=== PATIENT | female | born 1995 | race African-American/Black ===

== ENCOUNTER 2020-12-27 10:47 | Emergency (ER) | payer OTHER, SELFPAY ==
[2020-12-27 11:06] VITALS: BP 138/101; PULSE 76; RESP 16; TEMP 36.9; O2SAT 100
[2020-12-27 12:27] LABS: Add Urine Microscopic? YES; Appearance Urine Clear (Clear); Bacteria Urine Trace /hpf; Bilirubin Urine Negative (Negative); Blood Urine Negative (Negative); Color Urine Yellow (Yellow); Glucose Urine UA Negative (Negative); Ketones Urine Negative (Negative); Leukocyte Esterase Ur Negative LEU/UL (Negative); Mucus Urine Rare /lpf; Nitrate Urine Negative (Negative); Protein Urine Negative (Negative); Specific Grav Ur 1.026 (1.001-1.035); Squamous Epithelial Cell Urine Occasional /hpf (Few); Urobilinogen Urine Negative mg/dL (<2.0); WBC Urine 0-3 /hpf
--- NOTE | 2020-12-27 14:12 | ED.GENADULT ---
HPI - General Adult General Chief complaint: Urogenital-Female Stated complaint: vaginal discomfort Time Seen by Provider: 12/27/20 11:25 Source: patient and RN notes reviewed Mode of arrival: ambulatory Limitations: no limitations History of Present Illness HPI narrative: Patient is a 25-year-old female who presents to emergency department for evaluation of concern for vaginal irritation and itching notes she was treated for trichomoniasis and bacterial vaginosis and has since the treatment been having irritation and itching with concern for yeast infection has follow-up with her kindergartner denies any fever vomiting or other complaint and presents in no distress Related Data Allergies Allergy/AdvReac Type Severity Reaction Status Date / Time No Known Allergies Allergy Verified 12/27/20 11:54 Review of Systems Review of Systems: All systems reviewed & are unremarkable except as noted in HPI and below PMFSH Past Medical History Medical History Healthy female Surgical History Surgical History No history of previous surgery Social History Social History Smoking status: Smoker, status unknown Gender identity (if verbalized by the patient): Female Exam Narrative: Exam Narrative: GENERAL: Well-appearing, well-nourished, and in no acute distress. HEAD: Normocephalic, atraumatic. EYES: PERRLA and EOMI. ENT: Nares clear, no rhinorrhea or epistaxis. Mucous membranes moist. CHEST: Clear to auscultation. No respiratory distress. No wheezes rales or rhonchi HEART: Regular rate and rhythm. No murmur heard. Normal peripheral pulses. ABDOMEN: Soft, nontender, nondistended FEMALE GENITOURINARY: Patient with small amount of white discharge in the vaginal vault otherwise normal exam EXTREMITIES: Normal range of motion. No edema. SKIN: Warm, dry, no rash. NEURO: No focal deficits. Alert and oriented x3. PSYCH: Normal mood and affect. Course Course Emergency Course: Patient in the room in no distress aware of case findings treatment plan and diagnosis agreeing to follow-up as instructed or to return if symptoms worsen or concerns Vital Signs Vital signs: Vital Signs Temperature 98.5 F 12/27/20 11:06 Pulse Rate 76 07/08/21 11:06 Respiratory Rate 16 12/27/20 11:06 Blood Pressure 138/101 H 12/27/20 11:06 Pulse Oximetry 100 12/27/20 11:06 Temperature 98.5 F 12/27/20 11:06 Pulse Rate 76 12/27/20 11:06 Respiratory Rate 16 12/27/20 11:06 Blood Pressure 138/101 H 12/27/20 11:06 Pulse Oximetry 100 12/27/20 11:06 Medical Decision Making MDM Narrative Medical decision making narrative: ABCs and vital signs intact and stable patient was evaluated had pelvic cultures obtained will be following with gynecology for further evaluation is felt appropriate for outpatient reevaluation Vital Signs Vital Signs: Vital Signs Temperature 98.5 F 12/27/20 11:06 Pulse Rate 76 12/27/20 11:06 Respiratory Rate 16 12/27/20 11:06 Blood Pressure 138/101 H 12/27/20 11:06 Pulse Oximetry 100 12/27/20 11:06 Temperature 98.5 F 12/27/20 11:06 Pulse Rate 76 12/27/20 11:06 Respiratory Rate 16 12/27/20 11:06 Blood Pressure 138/101 H 12/27/20 11:06 Pulse Oximetry 100 12/27/20 11:06 Lab Data Labs: Lab Results 12/27/20 12/27/20 12/27/20 Range/Units 12:10 13:18 13:18 Urine Color Yellow (Yellow) Urine Appearance Clear (Clear) Urine pH 7.0 (5.0-9.0) Ur Specific [place] 1.026 (1.001-1.035) Urine Protein Negative (Negative) mg/dL Urine Glucose (UA) Negative (Negative) mg/dL Urine Ketones Negative (Negative) mg/dL Ur Blood (Man) Negative (Negative) Urine Nitrate Negative (Negative) Urine Bilirubin Negative (Negative) Urine Urobilinogen Negative (<2.0) m
[2020-12-27 14:25] VITALS: BP 134/71; PULSE 58; RESP 16; TEMP 36.3; O2SAT 100
== END 2020-12-27 14:26 | disposition home or self-care (01) ==
PROVIDERS: Emergency Medicine Emergency Medical Services; Emergency Provider Emergency Medicine
DX: N76.0 Acute vaginitis (principal)
CPT/HCPCS: 81001; 81025; 87070; 87491; 87591; 87808; 99284

== ENCOUNTER 2021-02-03 04:55 | Emergency (ER) | payer OTHER, SELFPAY ==
[2021-02-03 05:02] VITALS: BP 137/84; PULSE 76; RESP 16; TEMP 37; O2SAT 98
--- NOTE | 2021-02-03 05:03 | ED.GENADULT ---
HPI - General Adult General Chief complaint: Nausea/Vomiting/Diarrhea Stated complaint: N/V after ETOH Time Seen by Provider: 02/03/21 04:58 History of Present Illness HPI narrative: Patient with 5-year-old female presents the emergency department with chief complaint of nausea and vomiting. Patient reports tonight she had a couple margaritas and that was followed by several shots of [place] the patient states that she started having multiple episodes of nausea and vomiting and has been unable to keep anything down since then. The patient reports her abdomen feels uneasy but denies any localizing pain. Patient denies fever denies chills denies diarrhea. Related Data Allergies Allergy/AdvReac Type Severity Reaction Status Date / Time No Known Allergies Allergy Verified 02/03/21 05:11 Review of Systems Review of Systems: A 10 system review of systems was completed on the patient and is negative except for what is stated in the HPI. Nursing and ancillary documentation was reviewed. PMFSH Past Medical History Medical History Healthy female Surgical History Surgical History No history of previous surgery Social History Social History Smoking status: Smoker, status unknown Gender identity (if verbalized by the patient): Female Exam Narrative: GENERAL: Well-appearing, well-nourished, and in no acute distress. HEAD: Normocephalic, atraumatic. EYES: PERRLA and EOMI. ENT: Nares clear, no rhinorrhea or epistaxis. Mucous membranes moist. NECK: Supple. CHEST: Clear to auscultation. No respiratory distress. HEART: Regular rate and rhythm. No murmur heard. Normal peripheral pulses. ABDOMEN: Soft, nontender, nondistended, normal active bowel sounds. EXTREMITIES: Normal range of motion. No edema. SKIN: Warm, dry, no rash. NEURO: No focal deficits. Alert and oriented x3. PSYCH: Normal mood and affect. Course Vital Signs Vital signs: Vital Signs Temperature 37.0 C 02/03/21 05:02 Pulse Rate 76 02/03/21 05:02 Respiratory Rate 16 02/03/21 05:02 Blood Pressure 137/84 02/03/21 05:02 Pulse Oximetry 98 02/03/21 05:02 Temperature 37.0 C 02/03/21 05:02 Pulse Rate 76 02/03/21 05:02 Respiratory Rate 16 02/03/21 05:02 Blood Pressure 137/84 02/03/21 05:02 Pulse Oximetry 98 02/03/21 05:02 Medical Decision Making Vital Signs Vital Signs: Vital Signs Temperature 37.0 C 02/03/21 05:02 Pulse Rate 76 02/03/21 05:02 Respiratory Rate 16 02/03/21 05:02 Blood Pressure 137/84 02/03/21 05:02 Pulse Oximetry 98 02/03/21 05:02 Temperature 37.0 C 02/03/21 05:02 Pulse Rate 76 02/03/21 05:02 Respiratory Rate 16 02/03/21 05:02 Blood Pressure 137/84 02/03/21 05:02 Pulse Oximetry 98 02/03/21 05:02 Lab Data Result diagrams: 02/03/21 05:25 02/03/21 05:25 Labs: Lab Results 02/03/21 02/03/21 02/03/21 Range/Units 05:25 05:25 05:25 WBC 10.1 H (4.5-10.0) K/mm3 RBC 4.22 (4.2-5.4) M/mm3 Hgb 11.4 L (12.0-15.0) g/dL Hct 34.4 L (37.0-47.0) % MCV 81.5 (80-100) fl MCH 27.0 (26-34) pg MCHC 33.1 (32-36) g/dl RDW 14.6 H (11.5-14.5) % Plt Count 387 H (150-375) k/mm3 MPV 9.4 (7.4-10.4) fl Immature Gran % (Auto) 0.4 (0-0.5) % Neut % (Auto) 74.9 H (45.5-73.1) % Lymph % (Auto) 18.6 (18.3-44.2) % [place] % (Auto) 5.6 (2.6-8.5) % Eos % (Auto) 0.3 (0-4.4) % Baso % (Auto) 0.2 (0.2-1.2) % Lymph # (Auto) 1.88 (0.9-3.2) K/mm3 [place] # (Auto) 0.6 (0.1-0.6) K/mm3 Eos # (Auto) 0.0 (0-0.3) K/mm3 Baso # (Auto) 0.0 (0.0-0.1) K/mm3 Abs Immat Gran (auto) 0.04 H (0.00-0.031) K/mm3 Absolute Neuts (auto) 7.6 H (1.3-6.7) K/mm3 Absolute Nucleated RBC 0.0 (0.0-0.012) K/m
[2021-02-03] MEDS: ONDANSETRON INJ 4 MG/2 ML VIAL IV PUSH (05:17)
[2021-02-03] MEDS: SODIUM CHLORIDE 0.9% IV 1,000 ML 999 ML IV CONT (05:17)
[2021-02-03 05:35] LABS: Basophils Percent Auto 0.2 % (0.2-1.2); Eosinophils Percent Auto 0.3 % (0-4.4); Hematocrit 34.4 % (37.0-47.0); Hemoglobin 11.4 g/dL (12.0-15.0); Immature Granulocyte Absolute 0.04 K/mm3 (0.00-0.031); Immature Granulocyte Percent A 0.4 % (0-0.5); Lymphocytes Absolute Auto 1.88 K/mm3 (0.9-3.2); Lymphocytes Percent Auto 18.6 % (18.3-44.2); Mean Corpuscular HGB Conc 33.1 g/dl (32-36); Mean Corpuscular Volume 81.5 fl (80-100); Mean Platelet Volume 9.4 fl (7.4-10.4); Monocytes Absolute Auto 0.6 K/mm3 (0.1-0.6); Monocytes Percent Auto 5.6 % (2.6-8.5); Neutrophils Absolute Auto 7.6 K/mm3 (1.3-6.7); Neutrophils Percent Auto 74.9 % (45.5-73.1); Platelet Count Result 387 k/mm3 (150-375); Red Blood Count 4.22 M/mm3 (4.2-5.4); Red Cell Distribution Width 14.6 % (11.5-14.5); White Blood Count 10.1 K/mm3 (4.5-10.0)
[2021-02-03 05:40] LABS: Add Urine Microscopic? YES; Appearance Urine Clear (Clear); Bilirubin Urine Negative (Negative); Blood Urine 1+ (Negative); Color Urine Yellow (Yellow); Glucose Urine UA Negative (Negative); Ketones Urine Negative (Negative); Leukocyte Esterase Ur Negative LEU/UL (Negative); Nitrate Urine Negative (Negative); Protein Urine 1+ mg/dL (Negative); Squamous Epithelial Cell Urine Rare /hpf (Few); Urobilinogen Urine Negative mg/dL (<2.0); WBC Urine 0-3 /hpf
[2021-02-03 05:50] LABS: Alanine Aminotransferase 14 U/L (4-35); Albumin Level 4.3 g/dL (3.5-5.1); Alkaline Phosphatase 80 U/L (38-126); Anion Gap 9 mmol/L (8-16); Aspartate Amino Transferase 28 U/L (14-36); Bilirubin,Total 0.2 mg/dL (0.2-1.3); Blood Urea Nitrogen 6 mg/dL (7-17); Carbon Dioxide 27 mmol/L (22-30); Chloride 101 mmol/L (98-107); Estimated Glomerular Filt Rate > 60; Glucose 103 mg/dL (65-110); Lipase 44 U/L (23-300); Potassium 3.6 mmol/L (3.4-5.0); Sodium 137 mmol/L (137-145)
[2021-02-03 05:51] LABS: Ethanol < 10 mg/dL (<10)
[2021-02-03 06:53] VITALS: BP 112/65; PULSE 62; RESP 16; O2SAT 100
[2021-02-03 07:14] VITALS: BP 101/74; PULSE 60; RESP 17; O2SAT 99
== END 2021-02-03 07:20 | disposition home or self-care (01) ==
PROVIDERS: Emergency Provider Emergency Medicine
DX: R11.2 Nausea with vomiting, unspecified (principal)
CPT/HCPCS: 36415; 80053; 80307; 81001; 81025; 83690; 85025; 96361; 96374; 99284; J2405; J7030

== ENCOUNTER 2021-09-10 14:08 | Emergency (ER) | payer OTHER, SELFPAY ==
[2021-09-10 14:10] VITALS: BP 141/87; PULSE 75; RESP 14; TEMP 36.4; O2SAT 99
--- NOTE | 2021-09-10 14:37 | ED.NAVMDI ---
HPI - Nausea/Vomiting/Diarrhea General Chief complaint: Nausea/Vomiting/Diarrhea Stated complaint: Nausea vomiting Time Seen by Provider: 09/10/21 14:34 Source: patient Mode of arrival: ambulatory History of Present Illness HPI Narrative: 26 y/o female presents to the ER today for nausea and vomiting since around 1am. She drank a lot of alcohol yesterday evening. She says that she has had persistant vomiting all day and cannot hold anything down. She says she has had a little diarrhea but not much. No fever or chills. Denies any abdominal pain. No back pain. No dysuria. She denies any chance of . She has the Mirena IUD. Related Data Allergies Allergy/AdvReac Type Severity Reaction Status Date / Time No Known Allergies Allergy Verified 09/10/21 14:11 Review of Systems Constitutional: Constitutional: Reports as per HPI, Reports chills, Denies fatigue, Denies fever(s) and Denies headache(s) Eyes: Eyes: Denies change in vision ENT: Denies dizziness and Denies headache(s) Cardiovascular: Cardiovascular: Denies chest pain Respiratory: Respiratory: Denies chest congestion, Denies cough and Denies dyspnea Gastrointestinal: Gastrointestinal: Reports nausea and Reports vomiting Genitourinary: Genitourinary: Denies hematuria and Denies dysuria Musculoskeletal: Musculoskeletal: Denies myalgias Neurologic: Reports system reviewed and no additional complaints, except as documented Psychiatric: Psychiatric: Reports no additional psychiatric complaints Endocrine: Endocrine: Reports no additional endocrine complaints PMFSH Past Medical History Medical History Healthy female Surgical History Surgical History No history of previous surgery Social History Social History Smoking status: Smoker, status unknown Gender identity (if verbalized by the patient): Female Exam Const: General: cooperative, healthy appearing, comfortable and no acute distress HENMT: Head: normal to inspection Eyes: General: appearance normal, both eyes and all related structures Neck: Neck: normal visual inspection and full ROM Chest: Chest palpation & inspection: normal inspection of the chest Resp: Effort & Inspection: normal respiratory effort Auscultation: clear to auscultation bilaterally Cardio: Rate: regular rate Rhythm: regular rhythm GI: Inspection: normal to inspection GI Palp: No abdominal tenderness Auscultation: normal bowel sounds Back/Spine/Pelvis: Back: no CVA tenderness Skin: General skin exam: normal color and no rashes or lesions noted Neuro: General: oriented to person, patient oriented x3 and gait normal Course Reevaluation(s) Reevaluation #1: Pt reports that she is feeling much better after meds and fluids. Date: 09/10/21 Time: 17:28 Vital Signs Vital signs: Vital Signs Temperature 36.4 C L 09/10/21 14:10 Pulse Rate 75 09/10/21 14:10 Respiratory Rate 14 09/10/21 14:10 Blood Pressure 141/87 H 09/10/21 14:10 Pulse Oximetry 99 09/10/21 14:10 Temperature 36.4 C L 09/10/21 14:10 Pulse Rate 80 09/10/21 16:23 Respiratory Rate 18 09/10/21 16:23 Blood Pressure 141/87 H 09/10/21 14:10 Pulse Oximetry 98 09/10/21 16:23 MDM - Nausea/Vomiting/Diarrhea Differential Diagnosis Differential diagnosis: Likely food poisoning, gastroenteritis and dehydration Lab Data Attestation: I reviewed the patient's lab results. Result diagrams: 09/10/21 14:36 09/10/21 14:35 Labs: Lab Results 09/10/21 09/10/21 09/10/21 Range/Units 14:35 14:36 14:57 WBC 11.0 H (4.5-10.0) K/mm3 RBC 4.90 (4.2-5.4) M/mm3 Hgb 13.8 (12.0-15.0) g/dL Hct 41.5 (37.0-47.0) % MCV 84.7 (80-100) fl MCH 28.2 (26-34) pg MCHC 33.3 (32-36) g/dl RDW 15.2 H (11.5-14
[2021-09-10 14:52] LABS: Basophils Percent Auto 0.3 % (0.2-1.2); Eosinophils Percent Auto 0.2 % (0-4.4); Hematocrit 41.5 % (37.0-47.0); Hemoglobin 13.8 g/dL (12.0-15.0); Immature Granulocyte Absolute 0.02 K/mm3 (0.00-0.031); Immature Granulocyte Percent A 0.2 % (0-0.5); Lymphocytes Absolute Auto 1.57 K/mm3 (0.9-3.2); Lymphocytes Percent Auto 14.3 % (18.3-44.2); Mean Corpuscular HGB Conc 33.3 g/dl (32-36); Mean Corpuscular Hemoglobin 28.2 pg (26-34); Mean Corpuscular Volume 84.7 fl (80-100); Mean Platelet Volume 9.4 fl (7.4-10.4); Monocytes Absolute Auto 0.4 K/mm3 (0.1-0.6); Monocytes Percent Auto 3.9 % (2.6-8.5); Neutrophils Absolute Auto 8.9 K/mm3 (1.3-6.7); Neutrophils Percent Auto 81.1 % (45.5-73.1); Platelet Count Result 396 k/mm3 (150-375); Red Cell Distribution Width 15.2 % (11.5-14.5)
[2021-09-10 15:01] LABS: Alanine Aminotransferase 14 U/L (4-35); Albumin Level 4.6 g/dL (3.5-5.1); Alkaline Phosphatase 80 U/L (38-126); Anion Gap 9 mmol/L (8-16); Aspartate Amino Transferase 28 U/L (14-36); Bilirubin,Total 0.8 mg/dL (0.2-1.3); Blood Urea Nitrogen 7 mg/dL (7-17); Carbon Dioxide 26 mmol/L (22-30); Chloride 105 mmol/L (98-107); Estimated CRCL calculation 137 ml/min; Estimated Glomerular Filt Rate > 60; Glucose 99 mg/dL (65-110); Lipase 37 U/L (23-300); Potassium 3.9 mmol/L (3.4-5.0); Sodium 140 mmol/L (137-145)
[2021-09-10] MEDS: ONDANSETRON INJ 4 MG/2 ML VIAL 8 MG IV PUSH (15:20)
[2021-09-10] MEDS: SODIUM CHLORIDE 0.9% IV 1,000 ML 999 ML IV CONT (15:20)
[2021-09-10 15:29] LABS: SPREG INTERNAL CONTROL Positive; Serum Qual hCG Negative
[2021-09-10 16:23] VITALS: PULSE 80; RESP 18; O2SAT 98
[2021-09-10 17:35] VITALS: BP 102/78; PULSE 80; RESP 18; O2SAT 98
[2021-09-10 17:57] LABS: Add Urine Microscopic? YES; Appearance Urine Cloudy (Clear); Bacteria Urine Trace /hpf; Bilirubin Urine Negative (Negative); Blood Urine Negative (Negative); Color Urine Yellow (Yellow); Glucose Urine UA Negative (Negative); Ketones Urine Negative (Negative); Leukocyte Esterase Ur Negative LEU/UL (Negative); Mucus Urine Rare /lpf; Nitrate Urine Negative (Negative); Protein Urine 1+ mg/dL (Negative); Squamous Epithelial Cell Urine Few /hpf (Few); Urobilinogen Urine Negative mg/dL (<2.0); WBC Urine 0-3 /hpf
== END 2021-09-10 17:36 | disposition home or self-care (01) ==
PROVIDERS: Emergency Medicine; Emergency Provider Nurse Practitioner Family
DX: K52.9 Noninfective gastroenteritis and colitis, unspecified (principal)
CPT/HCPCS: 36415; 80053; 81001; 81025; 83690; 84703; 85025; 96361; 96374; 99284; J2405; J7030

== ENCOUNTER 2022-03-23 00:05 | Emergency (ER) | payer OTHER, SELFPAY ==
--- NOTE | ~2022-03-23 | XR_ITS ---
EXAMINATION: XR ankle LT min 3V DATE: 03/23/2022 02:09 INDICATION: Left ankle pain post fall TECHNIQUE: Anteroposterior, oblique and lateral views of the left ankle were obtained. COMPARISON: None. FINDINGS: Alignment is normal. No fracture. 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 Joint spaces are well maintained. No ankle joint effusion. The soft ti ssues are unremarkable. IMPRESSION: 1. No acute osseous abnormality. Reviewed, dictated and finalized at location A.
[2022-03-23 00:33] VITALS: BP 129/71; PULSE 82; RESP 20; TEMP 36.7; O2SAT 99
--- NOTE | 2022-03-23 02:22 | PC.NURSE ---
Pt reports she fell and twisted her left ankle, and now reports unable to put weight on it. No deformity or edema noted. Pedal pulses +2.
--- NOTE | 2022-03-23 02:33 | ED.LOWEXIN ---
HPI - Extremity Injury (Lower) General Chief Complaint: Extremity Injury, Lower Stated Complaint: Fall, left ankle injury and pain Time Seen by Provider: 03/23/22 02:24 Source: RN notes reviewed History of Present Illness HPI Narrative: Patient presents emergency department from home for left ankle pain. Patient states approximately 10 PM this evening she is walking on the stairs when she missed a step causing her to roll her left ankle inward and she states since that time she has had pain and swelling over the left lateral ankle she states she did go down on her knee with a mild abrasion to her knee but denies any knee pain she denies any other trauma or injury states she has not take anything for the pain denies any numbness or tingling in the extremity Related Data Allergies Allergy/AdvReac Type Severity Reaction Status Date / Time No Known Allergies Allergy Verified 03/23/22 02:20 Review of Systems Review of Systems: Gen.: Denies fevers or chills Musculoskeletal: See HPI Neuro: Denies numbness, tingling, weakness Skin: Denies rash Endo: Denies DM PMFSH Past Medical History Medical History Healthy female Surgical History Surgical History No history of previous surgery Social History Social History Smoking status: Smoker, status unknown Gender identity (if verbalized by the patient): Female Exam Narrative: APPEARANCE: No acute distress, nontoxic, resting in bed Eyes: EOMI HEENT: Normocephalic, atraumatic, RESPIRATORY: No respiratory distress MUSCULOSKELETAl: Tender palpation of the left lateral and anterior ankle with swelling over the lateral ankle no tenderness over the medial malleolus no tenderness of the base of the fifth metatarsal or the proximal left fibula dorsalis pedis pulse 2+ neurovascular intact no tenderness of the left knee NEURO: Awake and alert. Following commands, speech normal, no focal deficits SKIN:: Warm, dry. Normal Color superficial abrasion over the left anterior lateral inferior knee no active bleeding or signs of infection Course Course Emergency Course: Discussed with patient results of workup and diagnosis. Discussed need for follow-up with primary care, proper use of medication, and reasons to return to the emergency department. Patient understands and agrees to current treatment plan Vital Signs Vital signs: Vital Signs Temperature 98.1 F 03/23/22 00:33 Pulse Rate 82 03/23/22 00:33 Respiratory Rate 20 03/23/22 00:33 Blood Pressure 129/71 03/23/22 00:33 Pulse Oximetry 99 03/23/22 00:33 Oxygen Delivery Room Air 03/23/22 00:33 Temperature 98.1 F 03/23/22 00:33 Pulse Rate 82 03/23/22 00:33 Respiratory Rate 20 03/23/22 00:33 Blood Pressure 129/71 03/23/22 00:33 Pulse Oximetry 99 03/23/22 00:33 Oxygen Delivery Room Air 03/23/22 00:33 MDM - Extremity Injury (Lower) Imaging Data Attestation: I personally reviewed and interpreted this imaging study as follows: My impression: Ankle x-ray reviewed by myself shows no acute fracture Discharge Plan Discharge Clinical Impression: Left ankle sprain Patient Disposition: Home, Self-Care Condition: Stable Instructions: Antibiotic Form, Ankle Sprain (ED) Additional Instructions: Return for increasing pain numbness or tingling in the extremity or any other symptoms of concern Prescriptions: New ibuprofen 600 mg tablet 600 mg PO TID PRN (Reason: pain) Qty: 14 0RF No Action ondansetron 4 mg tablet,disintegrating 4 mg PO Q8H PRN (Reason: nausea and vomiting) Qty: 10 0RF fluconazole [Diflucan] 200 mg tablet 200 mg PO DAILY Qty: 2 0RF Rx Instructions: may repeat second dose in 3-5 days Follow-up/Referrals: Titi Hsu MD [Physician] - (Follow-up in 1-2 days for further on-call
[2022-03-23] MEDS: IBUPROFEN 600 MG TABLET PO (02:47)
[2022-03-23 02:57] VITALS: BP 133/87; PULSE 75; RESP 18; O2SAT 100
== END 2022-03-23 03:16 | disposition home or self-care (01) ==
PROVIDERS: Emergency Provider Emergency Medicine
DX: S93.402A Sprain of unspecified ligament of left ankle, initial encounter (principal); X50.0XXA Overexertion from strenuous movement or load, initial encounter
CPT/HCPCS: 73610; 99283; A9270

== ENCOUNTER 2022-04-13 18:40 | Emergency (ER) | payer OTHER, SELFPAY ==
--- NOTE | ~2022-04-13 | CT_ITS ---
EXAMINATION: CT abdomen pelvis wo con DATE: 04/13/2022 22:57 INDICATION: Concern for retained vaginal foreign body. TECHNIQUE: Computed tomography (CT) of the abdomen and pelvis was performed without intravenous contr ast. The dose-length product was 1488.89 mGy-cm. Automated exposure control and iterative reconstruct ion technique were employed. COMPARISON: None. FINDINGS: Heart size is normal. No significant pleural or pericardial effusion. No free air or free f luid. There are gallstones. Lung bases are unremarkable. The liver, spleen, pancreas, adrenal glands and kidneys are unremarkable. There is an IUD in the uterus/lower uterine segment. Small amount of ga s in the vagina, although no evidence for foreign body. No free air or free fluid. No significant vas cular abnormality. No lymphadenopathy. IMPRESSION: 1. Small amount of gas in the vagina, although no foreign bodies identified. IUD present in the lower uterine segment. 2: Cholelithiasis. Reviewed, dictated and finalized at location B. IMPRESSION: 1. Small amount of gas in the vagina, although no foreign bodies identified. IU D present in the lower uterine segment. 2: Cholelithiasis.
[2022-04-13 19:37] VITALS: BP 106/63; PULSE 92; RESP 18; TEMP 36.4; O2SAT 99
--- NOTE | 2022-04-13 20:34 | PC.NURSE ---
Pt states they can't find their tampon string. Pt states they don't think they are currently on their period but they have an IUD in and don't have regular cycles. Pt states it's old blood and didn't even really need a tampon in . Pt states they have been looking for tampon string for few hours now. Pt states they can feel the tampon still in there.
--- NOTE | 2022-04-13 20:48 | ED.GENADULT ---
HPI - General Adult General Chief complaint: Unspecified Stated complaint: trouble removing tampon Time Seen by Provider: 04/13/22 20:35 History of Present Illness HPI narrative: Patient is a 27-year-old female presenting with retained foreign body. Patient states that she inserted a tampon about 8 hours ago and she has been unable to find it. States that she has been trying to find it for several hours. She denies any pain or abnormal discharge. No further complaints. Related Data Allergies Allergy/AdvReac Type Severity Reaction Status Date / Time No Known Allergies Allergy Verified 03/23/22 02:20 Review of Systems Review of Systems: All systems reviewed & are unremarkable except as noted in HPI and below PMFSH Past Medical History Medical History Healthy female Surgical History Surgical History No history of previous surgery Social History Social History Smoking status: Smoker, status unknown Gender identity (if verbalized by the patient): Female Exam Narrative: GENERAL: Well-appearing, well-nourished, and in no acute distress. HEAD: Normocephalic, atraumatic. EYES: PERRLA and EOMI. ENT: Nares clear, no rhinorrhea or epistaxis. Mucous membranes moist. NECK: Supple. CHEST: Clear to auscultation. No respiratory distress. HEART: Regular rate and rhythm. No murmur heard. Normal peripheral pulses. ABDOMEN: Soft, nontender, nondistended, normal active bowel sounds. : dark blood in vaginal vault, cervix fully visualized, IUD strings present, not able to find retained tampon EXTREMITIES: Normal range of motion. No edema. SKIN: Warm, dry, no rash. NEURO: No focal deficits. Alert and oriented x3. PSYCH: Normal mood and affect. Course Course Emergency Course: Patient is a 27-year-old female presenting with a possible lost tampon. Vitals are within normal limits. Patient is well-appearing and in no acute distress. Exam is remarkable for the above. I did not visualize a tampon in her vagina. Patient insists that it is in there so I offered CT scan which patient would like done. CT Noncon was obtained which shows no evidence of a tampon in the vagina. There is an IUD in place which I did see her strings on vaginal exam. Discussed the reassuring findings. Recommended she follow-up with [facility]. Appropriate return precautions were given. Patient voiced understanding and is agreeable with plan. Discharged in stable condition. Vital Signs Vital signs: Vital Signs Temperature 97.5 F L 04/13/22 19:37 Pulse Rate 92 04/13/22 19:37 Respiratory Rate 18 04/13/22 19:37 Blood Pressure 106/63 04/13/22 19:37 Pulse Oximetry 99 04/13/22 19:37 Oxygen Delivery Room Air 04/13/22 19:37 Temperature 97.5 F L 04/13/22 19:37 Pulse Rate 92 04/13/22 19:37 Respiratory Rate 18 04/13/22 19:37 Blood Pressure 106/63 04/13/22 19:37 Pulse Oximetry 99 04/13/22 19:37 Oxygen Delivery Room Air 04/13/22 19:37 Medical Decision Making Vital Signs Vital Signs: Vital Signs Temperature 97.5 F L 04/13/22 19:37 Pulse Rate 92 04/13/22 19:37 Respiratory Rate 18 04/13/22 19:37 Blood Pressure 106/63 04/13/22 19:37 Pulse Oximetry 99 04/13/22 19:37 Oxygen Delivery Room Air 04/13/22 19:37 Temperature 97.5 F L 04/13/22 19:37 Pulse Rate 92 04/13/22 19:37 Respiratory Rate 18 04/13/22 19:37 Blood Pressure 106/63 04/13/22 19:37 Pulse Oximetry 99 04/13/22 19:37 Oxygen Delivery Room Air 04/13/22 19:37 Lab Data Labs: UCG Bedside Result Negative Reference Range: Negative Critical Care Time Critical Care Time Critical Care Time: No Discharge Plan Discharge Clinical Impression: Retained tampon not found on examinat
--- NOTE | 2022-04-13 22:13 | PC.NURSE ---
pt in restroom at this time
[2022-04-14] MEDS: IBUPROFEN 600 MG TABLET PO (00:24)
== END 2022-04-14 00:24 | disposition home or self-care (01) ==
PROVIDERS: Emergency Provider Emergency Medicine
DX: T19.2XXA Foreign body in vulva and vagina, initial encounter (principal)
CPT/HCPCS: 74176; 81025; 99284; A9270